=== PATIENT | male | born 1975 | race Caucasian/White ===

== ENCOUNTER 2022-04-16 10:27 | Outpatient (CLI) | payer OTHER, SELFPAY ==
[2022-04-16 13:18] LABS: Albumin* 4.5 g/dL (3.3-5.0); Chloride* 100 mmol/L (96-114); Sodium* 135 mmol/L (135-149)
[2022-04-16 13:19] LABS: Potassium* 4.3 mmol/L (3.6-5.1)
[2022-04-16 13:20] LABS: Cholesterol* 290 mg/dL (90-199)
[2022-04-16 13:21] LABS: Alanine Aminotransferase* 74 U/L (4-50); Alkaline Phosphatase* 87 U/L (40-150); Aspartate Amino Transferase* 57 U/L (12-35); Bilirubin Total* 1.4 mg/dL (0.1-1.5); Blood Urea Nitrogen* 12 mg/dL (5-24); Carbon Dioxide* 25 mmol/L (20-32); Creatinine* 0.8 mg/dL (0.5-1.5); Estimated Glomerular Filt Rate 112 ml/min; Glucose* 255 mg/dL (60-115); Total Protein* 7.4 g/dL (6.0-8.3); Triglycerides* 334 mg/dL (40-149)
[2022-04-16 13:22] LABS: Calcium* 9.5 mg/dL (8.4-10.6); HDL Cholesterol* 37 mg/dL (>=40); LDL Cholesterol Calculated 186 mg/dL (<100)
[2022-04-16 13:34] LABS: C Reactive Protein* < 0.5 mg/dL (0.5-1.0)
[2022-04-16 13:43] LABS: Thyroid Stimulating Hormone* 0.832 uIU/mL (0.270-4.20)
[2022-04-17 21:36] LABS: Rheumatoid Factor <10 IU/mL (0-14)
[2022-04-17 23:38] LABS: Anti-Nuclear Ab(ANA)IgG ELISA None Detected (None Detected)
== END 2022-04-16 10:28 | disposition home or self-care (01) ==
LOC: LKVREF 10:28
PROVIDERS: PCP Family Medicine; Visit Provider Family Medicine
DX: Z00.00 Encounter for general adult medical examination without abnormal findings (principal); R53.83 Other fatigue; M25.50 Pain in unspecified joint; Z13.6 Encounter for screening for cardiovascular disorders
CPT/HCPCS: 80053; 80061; 84443; 86039; 86140; 86431

== ENCOUNTER 2022-04-28 19:31 | Outpatient (CLI) | payer OTHER, SELFPAY ==
--- NOTE | 2022-05-04 12:41 | W.PM.SLEEP ---
Sleep Study Details Details Interpreting Provider: Ozzie Pedroza MD Date of Sleep Study: 04/28/22 Sleep Study Details: STUDY TYPE:? Home ? BMI:? 16.6 ORDERING PROVIDER:? Lloyd INDICATION:? Concerns about sleep apnea ? SLEEP SUMMARY:? 513.5 monitored minutes RESPIRATORY SUMMARY:? AHI 13.7, supine 46.8, left lateral 11.3, right lateral 5.8 Low oxygen 75 9.6% of study oxygen less than 90%, 0.6% less than 85% and 0.1% of study oxygen less than 0.7% Snoring 38.9 PERIODIC LIMB MOVEMENTS OF SLEEP:? Not recorded CARDIAC:? Range 42-103, mean 56 IMPRESSION:? Mild obstructive sleep apnea with significant supine position dependency Significant hypo oxygenation noted during the study RECOMMENDATION: Treatment options would consist of AutoSet CPAP at a pressure of 4-17 versus an oral appliance. Airway expansion surgery may be an option. Once effective treatment is established would recommend an overnight oximetry study because of the amount of hypoxemia noted during the study.
== END 2022-04-28 19:32 | disposition home or self-care (01) ==
LOC: SLEEP 20:29
PROVIDERS: PCP Family Medicine; Visit Provider Family Medicine
DX: G47.33 Obstructive sleep apnea (adult) (pediatric) (principal)
CPT/HCPCS: 95806

== ENCOUNTER 2022-08-12 11:26 | Outpatient (CLI) | payer OTHER, SELFPAY | END 2022-08-12 11:27 | disposition home or self-care (01) | PROVIDERS: PCP Family Medicine; Visit Provider Family Medicine | DX: R79.89 Other specified abnormal findings of blood chemistry (principal) | CPT/HCPCS: 80076 ==

== ENCOUNTER 2022-10-18 08:22 | Outpatient (CLI) | payer OTHER, SELFPAY | END 2022-10-18 08:23 | disposition home or self-care (01) | LOC: NFLDREF 10-20 10:00 | PROVIDERS: PCP Family Medicine; Referring Provider Family Medicine; Visit Provider Family Medicine | DX: E11.69 Type 2 diabetes mellitus with other specified complication (principal); E66.9 Obesity, unspecified; E78.00 Pure hypercholesterolemia, unspecified | CPT/HCPCS: 80053; 80061; 82043; 82570 ==

== ENCOUNTER 2022-11-22 08:39 | Outpatient (CLI) | payer OTHER, SELFPAY | END 2022-11-22 08:40 | disposition home or self-care (01) | PROVIDERS: PCP Family Medicine; Visit Provider Family Medicine | DX: Z00.00 Encounter for general adult medical examination without abnormal findings (principal); R79.89 Other specified abnormal findings of blood chemistry; E78.00 Pure hypercholesterolemia, unspecified; R68.82 Decreased libido; R53.83 Other fatigue; E11.69 Type 2 diabetes mellitus with other specified complication; R80.9 Proteinuria, unspecified | CPT/HCPCS: 80053; 80061 ==

== ENCOUNTER 2022-12-14 08:20 | Outpatient (CLI) | payer OTHER, SELFPAY ==
--- NOTE | 2022-12-14 08:45 | CRLHL7_ITS ---
For Patients: As a result of the Century Cures Act, medical imaging exams and procedure reports are released immediately into your electronic medical record. You may view this report before your referring provider. If you have questions, please contact your health care provider. INDICATION: Type 2 diabetes TECHNIQUE: Grayscale, color Doppler and power Doppler ultrasound of the renal arteries performed. COMPARISON: None available FINDINGS: BILATERAL RENAL ARTERY DUPLEX ULTRASOUND ABDOMINAL AORTA: Peak systolic velocity = 112 cm/s. No aortic aneurysm. Visualization is somewhat limited due to bowel gas. RIGHT KIDNEY: 11.8 cm in length. There is no hydronephrosis. Peak systolic velocity = 125 cm/second Renal artery to aortic peak systolic velocity ratio = 1.1 Resistive indices: Normal Renal vein = patent LEFT KIDNEY: 11.9 cm in length. There is no hydronephrosis. Peak systolic velocity = 136 cm/second Renal artery to aortic peak systolic velocity ratio = 1.2 Resistive indices: Normal Renal vein = patent IMPRESSION: No evidence of significant renal artery stenosis. Dictated by Luis Landon MD @ 12/14/2022 10:04:53 AM (Electronically Signed)
== END 2022-12-14 08:21 | disposition home or self-care (01) ==
LOC: US 08:21
PROVIDERS: PCP Family Medicine; Referring Provider Internal Medicine Nephrology; Visit Provider Family Medicine
DX: E11.29 Type 2 diabetes mellitus with other diabetic kidney complication (principal); R80.9 Proteinuria, unspecified
CPT/HCPCS: 76775; 93975

== ENCOUNTER 2023-08-11 10:29 | Outpatient (CLI) | payer OTHER, SELFPAY | END 2023-08-11 10:30 | disposition home or self-care (01) | PROVIDERS: PCP Family Medicine; Visit Provider Family Medicine | DX: E11.29 Type 2 diabetes mellitus with other diabetic kidney complication (principal); R80.9 Proteinuria, unspecified; E78.00 Pure hypercholesterolemia, unspecified; Z12.5 Encounter for screening for malignant neoplasm of prostate; Z13.21 Encounter for screening for nutritional disorder; Z13.29 Encounter for screening for other suspected endocrine disorder; Z79.84 Long term (current) use of oral hypoglycemic drugs | CPT/HCPCS: 80053; 80061; 82043; 82570; 82607; 84443; G0103 ==

== ENCOUNTER 2023-09-23 09:13 | Day surgery (SDC) | payer OTHER, SELFPAY ==
[2023-09-23] VITALS (10 sets, daily range): BP systolic 123–144; BP diastolic 75–91; PULSE 62–77; RESP 16; TEMP 36.7–36.8; O2SAT 94–97; BMI 31.2
[2023-09-23] MEDS: BUPIVACAINE 0.5% 30 ML INJECTION (09:30)
[2023-09-23] MEDS: ETHYL CHLORIDE 1 APPLICATION 1 APPLIC TOPICAL (09:30)
--- NOTE | 2023-09-23 09:50 | P.ORPRC_ITS ---
Procedure Note Date of procedure: 09/23/23 Procedure: PREOPERATIVE DIAGNOSIS: 1. Left carpal tunnel syndrome POSTOPERATIVE DIAGNOSIS: 1. Left carpal tunnel syndrome PROCEDURE: 1. Left open carpal tunnel release SURGEON: Sukhjinder Wells MD. MARKETING INTERN: Mariam Justice. An assistant hall director was critical for this case to aid in patient positioning, tissue retraction, limb manipulation/positioning, and closure. ANESTHESIA: Local anesthetic IMPLANTS: None ESTIMATED BLOOD LOSS: 2 mL TOURNIQUET: 8 min at 250 mmHg COMPLICATIONS: None INDICATIONS: The patient is a pleasant 48-year-old male with history of bilateral hand numbness and tingling secondary to carpal tunnel syndrome. Symptoms were not improving with conservative treatment, and patient elected to proceed with surgical intervention consisting of left carpal tunnel release. Prior to surgery, the risks and benefits of the procedure were discussed with patient, all questions were answered, and informed consent was obtained. DESCRIPTION OF PROCEDURE: Patient was seen preoperatively and operative site was marked. Patient was then brought to the operating room and placed in the supine position on the OR table. Subcutaneous tissues overlying the left carpal tunnel were injected with a combination of 1% lidocaine and 0.5% bupivacaine with epinephrine. A tourniquet was placed on the patient's left arm and left upper extremity was prepped and draped in usual sterile fashion. A surgical time-out was performed confirming patient name, procedure, and location. The operative extremity was then elevated and exsanguinated with an Esmarch, and the tourniquet was inflated to 250 mmHg. A skin incision measuring approximately 3-4 cm was made in line with the ring finger extending from the distal wrist flexion crease to Bolaños's cardinal line. Blunt dissection was used to dissect through subcutaneous tissues and palmar fascia. Transverse carpal ligament was identified and was sharply incised proximally with care taken to protect the underlying median nerve. The transverse carpal ligament was then sharply divided along its ulnar border using tenotomy scissors and a [place] blade with care taken to protect the underlying median nerve. Once the transverse carpal ligament was divided, the antebrachial fascia was released proximally. The wound was then irrigated with normal saline, and the tourniquet was released. Total tourniquet time was 8 minutes. Hemostasis was achieved with bipolar electrocautery. The skin incision was closed with 4-0 nylon horizontal mattress sutures, and a sterile dressing was applied. Patient was then transferred to the recovery room in stable condition. POSTOPERATIVE PLAN: 1. Patient will be discharged to home day of surgery. 2. Ice and elevation as needed for pain and swelling. 3. Tylenol and/or ibuprofen as needed for pain. 4. They were given instructions for wound care and finger range of motion exercises. 5. Return to the clinic for follow-up evaluation in 10-14 days for wound check and suture removal.
--- NOTE | 2023-09-23 09:50 | W.PM.H&PU ---
History & Physical Update History & Physical Update H&P Reviewed and patient assessed: No changes noted
[2023-09-23] MEDS: LIDOCAINE 1% MDV 20 ML INJECTION (10:25)
[2023-09-23] MEDS: BUPIVACAINE 0.25% 30 ML INJECTION (10:25)
[2023-09-23] MEDS: BACITRACIN OINTMENT BULK TUBE 1 APPLIC TOPICAL (10:43)
== END 2023-09-23 11:05 | disposition home or self-care (01) ==
PROVIDERS: PCP Family Medicine; Visit Provider Orthopaedic Surgery
PROC: (CPT 64721; principal; 2023-09-23 11:15)
DX: G56.02 Carpal tunnel syndrome, left upper limb (principal)
CPT/HCPCS: 64721; J0665

== ENCOUNTER 2024-06-06 08:05 | Outpatient (CLI) | payer OTHER, SELFPAY | END 2024-06-06 08:06 | disposition home or self-care (01) | LOC: NFLDREF 06-08 17:59 | PROVIDERS: PCP Family Medicine; Referring Provider Family Medicine; Visit Provider Internal Medicine Nephrology | DX: E11.69 Type 2 diabetes mellitus with other specified complication (principal); N18.1 Chronic kidney disease, stage 1; R80.9 Proteinuria, unspecified; E78.00 Pure hypercholesterolemia, unspecified; E11.22 Type 2 diabetes mellitus with diabetic chronic kidney disease | CPT/HCPCS: 80061; 80069; 82043; 82247; 82248; 82570; 84450; 84460; 84550 ==

== ENCOUNTER 2024-06-11 16:12 | Outpatient (CLI) | payer OTHER, SELFPAY | END 2024-06-11 16:13 | disposition home or self-care (01) | LOC: NFLDREF 06-13 03:17 | PROVIDERS: PCP Family Medicine; Referring Provider Family Medicine; Visit Provider Internal Medicine Nephrology | DX: E11.69 Type 2 diabetes mellitus with other specified complication (principal); E11.22 Type 2 diabetes mellitus with diabetic chronic kidney disease; N18.1 Chronic kidney disease, stage 1; R80.9 Proteinuria, unspecified; Z79.85 Long-term (current) use of injectable non-insulin antidiabetic drugs | CPT/HCPCS: 82043; 82570 ==